=== PATIENT | female | born 1995 | race Caucasian/White ===

== ENCOUNTER 2019-02-12 05:28 | Inpatient (IN) | payer BC ==
[2019-02-12] MEDS ORDERED: Acetaminophen 500 MG Tab PO ONE (05:30)
[2019-02-12] MEDS ORDERED: Scopolamine 1.5 MG Transdermal Patch TOP ONE (05:30)
[2019-02-12] MEDS ORDERED: Celecoxib 200 MG Cap PO ONE (05:30)
[2019-02-12] MEDS ORDERED: Gabapentin 300 MG Cap PO ONE (05:30)
[2019-02-12] MEDS ORDERED: Dextrose 5%-Lactated Ringers 1,000 ML IV SCH (05:45)
[2019-02-12] MEDS ORDERED: cefOXitin 2 GM Vial ONE (06:31)
[2019-02-12] MEDS ORDERED: cefOXitin 2 GM in Sodium Chloride 0.9% 50 ML IV ONE (07:10)
[2019-02-12] MEDS ORDERED: Neostigmine Methylsulfate 1 MG/ML 5 ML Syringe ONE (07:10)
[2019-02-12] MEDS ORDERED: Dexamethasone 4 MG/ML SDV ONE (07:10)
[2019-02-12] MEDS ORDERED: Glycopyrrolate 0.2 MG/ML 5 ML MDV ONE (07:10)
[2019-02-12] MEDS ORDERED: Ondansetron 4 MG/2 ML SDV ONE (07:10)
[2019-02-12] MEDS ORDERED: Rocuronium 50 MG/5 ML Vial ONE (07:10)
[2019-02-12] MEDS ORDERED: Propofol 200 MG/20 ML SDV ONE (07:10)
[2019-02-12] MEDS ORDERED: Succinylcholine 200 MG/10 ML MDV ONE (07:10)
[2019-02-12] MEDS ORDERED: Lactated Ringers 1,000 ML ONE (07:12)
[2019-02-12] MEDS ORDERED: Lidocaine 2% 100 MG/5 ML Syringe IVPUSH SCH (07:30)
[2019-02-12] MEDS ORDERED: Ketamine 500 MG/5 ML MDV IV SCH (07:30)
[2019-02-12] MEDS ORDERED: Ketamine 50 MG in Sodium Chloride 0.9% 49.5 ML IV SCH (07:30)
[2019-02-12] MEDS: Lidocaine 0.4%/D5W 2 GM/500 ML BAG IV SCH (07:30)
[2019-02-12] MEDS ORDERED: fentaNYL 100 MCG/2 ML SDV ONE (08:35)
[2019-02-12] MEDS ORDERED: hydrOXYzine HCl 100 MG/2 ML SDV IM ONE (09:10)
[2019-02-12] MEDS ORDERED: fentaNYL 100 MCG/2 ML SDV IVPUSH ONE (09:10)
[2019-02-12] MEDS ORDERED: Ondansetron 4 MG/2 ML SDV IVPUSH PRN (11:02)
[2019-02-12] MEDS ORDERED: Metoclopramide 10 MG/2 ML SDV IVPUSH PRN (11:02)
[2019-02-12] MEDS ORDERED: HYDROmorphone 1 MG/ML Syringe IV PRN (11:02)
[2019-02-12] MEDS ORDERED: hydrOXYzine HCl 100 MG/2 ML SDV IM PRN (11:02)
[2019-02-12] MEDS ORDERED: Labetalol 20 MG/4 ML Syringe IVPUSH PRN (11:02)
[2019-02-12] MEDS ORDERED: diphenhydrAMINE 50 MG/ML SDV IVPUSH PRN (11:02)
[2019-02-12] MEDS ORDERED: HYDROmorphone 0.5 MG/0.5 ML Syringe IVPUSH PRN (11:02)
[2019-02-12] MEDS ORDERED: Pantoprazole 40 MG Vial IVPUSH SCH (12:00)
[2019-02-12] MEDS: Acetaminophen Soln 650 MG/20.3 ML UD Cup PO SCH ×3 (12:31→23:35)
[2019-02-12] MEDS: Dextrose 5%-Lactated Ringers 1,000 ML IV SCH ×2 (12:46→21:58)
[2019-02-12] MEDS: cefOXitin 2 GM in Sodium Chloride 0.9% 50 ML IV SCH ×2 (15:03→19:46)
[2019-02-12] MEDS: Gabapentin 250 MG/5 ML Solution ML 470 ML Bottle PO SCH ×2 (15:04→21:27)
[2019-02-12] MEDS: Heparin Sodium 5,000 Units/ML Vial SUBCUT SCH (15:04)
[2019-02-12] MEDS ORDERED: MVI, Adult with Vitamin K 10 ML, Thiamine 200 MG, Chromium/Copper/Mang/Selen/Zn 1 ML in... IV SCH ×4 (16:00)
[2019-02-13] MEDS: cefOXitin 2 GM in Sodium Chloride 0.9% 50 ML IV SCH ×2 (01:16→07:17)
[2019-02-13] MEDS ORDERED: Iopamidol 612 MG/ML 50 ML SDV PO STA (02:34)
[2019-02-13] MEDS: Heparin Sodium 5,000 Units/ML Vial SUBCUT SCH ×2 (03:22→15:50)
[2019-02-13] MEDS: Dextrose 5%-Lactated Ringers 1,000 ML IV SCH (04:15)
--- NOTE | 2019-02-13 04:16 | CRLCR ---
INDICATION: S/P RNY LEAK CHECK PRELIMINARY IMPRESSIONS: 1. No evidence of contrast extravasation is noted on 2 static submitted images. 2. Surgical drain is present in the left upper quadrant. Agree with preliminary report. No additional findings. Dictated by: Rome Fernandez MD @ 02/17/2019 17:48:43 (Electronically Signed)
[2019-02-13] MEDS: Acetaminophen Soln 650 MG/20.3 ML UD Cup PO SCH ×4 (05:23→23:56)
[2019-02-13] MEDS: Celecoxib 200 MG Cap PO SCH (07:13)
[2019-02-13] MEDS ORDERED: Ondansetron 4 MG Tab.DIS PO PRN (07:52)
[2019-02-13] MEDS ORDERED: Dextrose 5%-Lactated Ringers 1,000 ML IV SCH (08:00)
[2019-02-13] MEDS ORDERED: Non-Formulary Medication 1 Each (Etonogestrel [Nexplanon] 68 MG) IMPLANT SCH (09:00)
[2019-02-13] MEDS: SCOPOLAMINE PATCH CHECK TOP SCH (09:05)
[2019-02-13] MEDS: Lidocaine 0.4%/D5W 2 GM/500 ML BAG IV SCH (09:05)
--- NOTE | 2019-02-13 09:26 | PN ---
DATE OF SERVICE: 02/13/2019 SUBJECTIVE: Vitaliy is postoperative day #1. Her upper GI this morning was normal. Her pain has been managed. She slept well during the night. Her TREY drain put out 100 mL of a light pink drainage. Temperature max is 100.8. REVIEW OF SYSTEMS: Remainder of review of systems negative for any pertinent positives and negatives. OBJECTIVE: GENERAL: Vitaliy Varela is a pleasant 23-year-old female. She is sleeping comfortably in bed. VITAL SIGNS: TPR is 100.3, 82, 16. Blood pressure 103/45. HEENT: Negative. NECK: Supple. HEART: Regular rate and rhythm. LUNGS: Clear. ABDOMEN: Dressings dry and intact. TREY drain intact. Abdominal binder is on. EXTREMITIES: Without peripheral edema. ASSESSMENT: Laparoscopic Marybeth-en-Y gastric bypass surgery, liver biopsy, repair of diaphragmatic hernia, and partial gastrectomy for morbid obesity, hepatomegaly, diaphragmatic hernia, distal portion of the stomach, status post pouch formation. Date of surgery 02/12/2019. Surgeon, Aubrey Johnston MD. PLAN: 1. Decrease IV to 100 mL per hours. 2. Step 2 gastric bypass diet with no cereal. 3. Communication order: 3 med cups per hour or one every 20 minutes, record at bedside. 4. Dressing off, may shower. 5. Zofran ODT 4 mg q.4 hours p.r.n. nausea. She has a Nexplanon implant for control. 6. Good pulmonary toilet. 7. We will evaluate p.r.n. or in a.m. Dinah Lofton PA-C /[id number]
[2019-02-13] MEDS: Gabapentin 250 MG/5 ML Solution ML 470 ML Bottle PO SCH ×3 (10:05→20:29)
[2019-02-14] MEDS: Heparin Sodium 5,000 Units/ML Vial SUBCUT SCH (05:00)
[2019-02-14] MEDS: Acetaminophen Soln 650 MG/20.3 ML UD Cup PO SCH (05:05)
[2019-02-14] MEDS: Gabapentin 250 MG/5 ML Solution ML 470 ML Bottle PO SCH (08:30)
[2019-02-14] MEDS: Celecoxib 200 MG Cap PO SCH (08:30)
[2019-02-14] MEDS: SCOPOLAMINE PATCH CHECK TOP SCH (08:55)
[2019-02-14] MEDS ORDERED: Cyanocobalamin (Vitamin B12) 1,000 MCG/ML SDV IM ONE (09:00)
[2019-02-14] MEDS ORDERED: Magnesium Hydroxide 400 MG/5 ML Susp 30 ML Cup PO ONE (09:24)
--- NOTE | 2019-02-14 09:56 | DISCH ---
ADMISSION DIAGNOSES: 1. Morbid obesity, BMI 52.5. 2. Irritable bowel syndrome with diarrhea. 3. Iron deficiency anemia. 4. Generalized anxiety disorder. DISCHARGE DIAGNOSES: Laparoscopic Marybeth-en-Y gastric bypass surgery, liver biopsy, repair of diaphragmatic hernia, and partial gastrectomy for morbid obesity, hepatomegaly, diaphragmatic hernia, distal portion of the stomach, status post pouch formation. Date of surgery: 02/12/2019. Surgeon: Aubrey Johnston MD. HISTORY: Vitaliy Varela is a 23-year-old female with longstanding history of morbid obesity and increasing comorbidities. After preoperative evaluation and discussion of possible risks and possible complications, she wished to proceed with surgical procedure. HOSPITAL COURSE: Vitaliy had her surgery on 02/12/2019. She had no operative complications. On postoperative day #1, she was started on step 2 gastric bypass diet. Her activity was good. Pain was well managed. On postoperative day #2, she was able to be discharged to home. PHYSICAL EXAMINATION: GENERAL: Vitaliy is a pleasant 23-year-old female. Alert, orientated. VITAL SIGNS: Height 5 feet 6 inches, weight is 325 pounds, BMI is 52.5. TPR 98.6, 70, 16, blood pressure is 117/70. HEENT: Negative. NECK: Supple. HEART: Regular rate and rhythm. LUNGS: Clear. ABDOMEN: Sutures intact. 4 x 4 over TREY drain site. Abdominal binder on. EXTREMITIES: Without peripheral edema. DISPOSITION: Discharged to home. CONDITION: Stable and improving. FOLLOWUP: Followup appointment on 02/20/2019 at 11:15 a.m. HOME MEDICATIONS: 1. Tylenol 650 mg q.6 hours p.r.n. pain. 2. Celebrex 200 mg oral daily #14. 3. Milk of magnesia 30 mL to take one daily p.r.n. constipation, two were sent home with the patient. 4. Zofran ODT 4 mg q.4 hours p.r.n. nausea #30. She is to resume her home medications, Nexplanon. She is to discontinue all vitamins and supplements until after first postoperative appointment. DIET: Step 2 gastric bypass diet with no cereal for 2 weeks, 02/26/2019. ACTIVITY: No lifting greater than 10 pounds for 2 weeks. Walk at least 6 times daily, distance and time as tolerated. Driving: Do not drive for 1 week. Shower/bathing: May shower. DISCHARGE INSTRUCTIONS: Notify provider if any fever, increased pain, nausea, or vomiting. Keep site clean and dry. Wear abdominal binder for 2 weeks and then as tolerated. SPECIAL INSTRUCTIONS: Use incentive spirometer 10 times every hour while awake for 1 week.
--- NOTE | 2019-02-25 11:46 | OR ---
DATE OF PROCEDURE: 02/12/2019 PREOPERATIVE DIAGNOSIS: Morbid obesity. POSTOPERATIVE DIAGNOSES: 1. Morbid obesity. 2. Marked hepatomegaly. 3. Paraesophageal diaphragmatic hernia. 4. Ischemic area of stomach status post formation of gastric pouch. OPERATIVE PROCEDURES: 1. Laparoscopic Marybeth-en-Y gastric bypass with long-limb gastroenterostomy (17049). 2. David-Cut needle liver biopsy (47243). 3. Repair of paraesophageal diaphragmatic hernia (37494). 4. Partial gastrectomy (58411). ANESTHESIA: General. TIE UP WORKER: Dinah Lofton PA-C. INDICATIONS FOR PROCEDURE: This is a 23-year-old female presenting with longstanding morbid obesity issues and increasingly significant comorbidities. After preoperative evaluation and discussion, she wished to proceed with a gastric bypass. Procedure, potential risks including bleeding, infection, leaks from various GI tract closures, problems with bowel obstruction over time, as well as the possibility of cardiopulmonary, septic, or hemorrhagic complications leading to were discussed, and the patient wishes to proceed. DETAILS OF PROCEDURE: The patient was taken to the operating room and after general endotracheal anesthesia was induced, she was placed in a lithotomy position, and the abdomen was then prepped and draped. 15 cm inferior and 5 cm left of the xiphoid process, a transverse incision was made, and the peritoneal cavity entered under direct vision with an Optiview trocar and inflated to 15 mmHg pressure of CO2. Laparoscope was then reinserted and no underlying trocar insertion site injuries were seen. Following this bilateral subcostal transversus abdominis plane blocks were then placed and 5 additional trocars were placed across the upper and mid abdomen. Initial exploration revealed marked hepatomegaly with liver volume being roughly 2 to 3 times normal and liver grossly fatty infiltrated. David-Cut needle biopsies were obtained from the left lobe of liver. Minimal bleeding from the biopsy sites was controlled with electrocautery. The omentum was then divided in the midline up to the level of the transverse colon. This allowed identification of the small bowel at the ligament of Treitz. The small bowel was then traced out 200 cm distal to that point, where it was divided transversely with a MARIO stapler. Small bowel was then traced out additional 150 cm, where the ezah-jr-yzem enteroenterostomy was accomplished with internal firing of the Endo-MARIO 60 mm stapler. Common opening was then closed transversely with the same stapler, and the angles of anastomosis and mesenteric defect approximated with some 0 Ethibond stitch along with fibrin sealant. The divided end of the Marybeth limb was then from the mesentery for a few centimeters, which allowed an antecolic position of the Marybeth limb up to the level of the gastroesophageal junction without tension. The liver was retracted anteriorly. The patient noted to have a moderate size paraesophageal hernia with prolapse of some perigastric fat and gastric fundus in a plane anterior to the course of the esophagus. This was reduced and the peritoneum overlying the hernia incised and reflected downward. An anterior repair of the crural defect was then accomplished with 0 Ethibond sutures reinforced with PTFE pledgets. The gastrointestinal catheter was inflated 15 mL and pulled out snuggly against the EG junction. Gastric wall over the apex balloon was then marked with electrocautery and balloon catheter deflated and pulled up into the esophagus. The lesser omental tissue adjacent to the gastric cardia was then incised allowing dissection behind the stomach at that level. Pouch formation was initiated with transverse firing of the MARIO stapler at the level of the cauterized talisha at the gastric cardia and then completed with 2 additional firings of the MARIO stapler up to and through the angle of His. A portion of the stomach near the apex of the spleen on the bypassed portion of the stomach was noted to be ischemic. This area was therefore excised with additional firings of the MARIO stapler to limit chances of a leak developing in the bypassed portion of the stomach. The specimen was then delivered from the field. The anvil of a 25 mm EEA stapler was then attached to [place] sump type tube. The latter was brought down through the mouth and taken out through a small opening in the gastric pouch, allowing the anvil likewise to be pulled down to within the gastric pouch. The divided end of the Marybeth limb was then opened and main body of the EEA stapler passed several centimeters into the lumen of small bowel, brought up the anvil and united with it, thus creating the gastrojejunostomy. Upon removal of the stapler, double donuts of mucosa were noted within it. Small bowel was closed off with a vascular staple line. Gastrojejunostomy was reinforced with 3-0 Vicryl seromuscular stitch followed by fibrin sealant. Leak test was accomplished with injection of 120 mL of air in the gastric pouch while it was submerged with cefoxitin-containing saline solution. No leaks were identified. A single Matheus- Dennison drain was taken out through the left lateral trocar site and positioned adjacent to the gastrojejunostomy and from there up into the splenic fossa. Trocars were then sequentially removed, the peritoneal cavity deflated, and incisions were closed with some 4- 0 Vicryl skin stitch, which was also used to affix the drain. The patient was taken to the recovery room in satisfactory condition. Physician marketing operations assistant, Dinah Lofton, played an essential role in assisting in this case, helping to position the patient, retract structures as needed, as well as suturing and cutting sutures when indicated. Her presence improved patient safety and decreased operative time. Aubrey Johnston MD /[id number]
== END 2019-02-14 09:50 | disposition home or self-care (01) | DRG 403 ==
LOC: JP.SDSSCHI 05:28 → JP.SDS 05:28 → JP.2SS 08:50 → EDSTATUS 09:15
PROVIDERS: ADMIT Surgery; ATTEND Surgery
PROC: 0D164ZA Bypass Stomach to Jejunum, Percutaneous Endoscopic Approach (ICD-10-PCS; principal; 2019-02-12)
PROC: 0FB24ZX Excision of Left Lobe Liver, Percutaneous Endoscopic Approach, Diagnostic (ICD-10-PCS; 2019-02-12)
PROC: 0BQT4ZZ Repair Diaphragm, Percutaneous Endoscopic Approach (ICD-10-PCS; 2019-02-12)
PROC: 0DB64ZZ Excision of Stomach, Percutaneous Endoscopic Approach (ICD-10-PCS; 2019-02-12)
DX: E66.01 Morbid (severe) obesity due to excess calories (principal); Z68.43 Body mass index [BMI] 50.0-59.9, adult; R16.0 Hepatomegaly, not elsewhere classified; K44.9 Diaphragmatic hernia without obstruction or gangrene; K76.0 Fatty (change of) liver, not elsewhere classified; K31.89 Other diseases of stomach and duodenum; F41.1 Generalized anxiety disorder; D50.9 Iron deficiency anemia, unspecified; K58.0 Irritable bowel syndrome with diarrhea
CPT/HCPCS: 36415; 74240; 80048; 81025; 82962; 85027; 86850; 86900; 86901; 88305; 88307; 88313; A9270-GY; C9113; J0171; J0330; J0694; J1100; J1644; J2001; J2405; J2704; J2710; J2795; J3010; J3410; J3411; J3420; J3490; J7042; J7050; J7120; Q9967

== ENCOUNTER 2020-07-28 05:30 | Day surgery (SDC) | payer BC ==
[2020-07-28] MEDS ORDERED: Acetaminophen 500 MG Tab PO ONE (05:45)
[2020-07-28] MEDS: Dextrose 5%-Lactated Ringers 1,000 ML IV SCH ×2 (06:31→10:57)
[2020-07-28] MEDS ORDERED: Bupivacaine 0.5%/EPINEPHrine 1:200,000 50 ML MDV ONE (06:35)
[2020-07-28] MEDS ORDERED: cefOXitin 2 GM in Sodium Chloride 0.9% 50 ML IV ONE (06:45)
[2020-07-28] MEDS ORDERED: Glycopyrrolate 0.2 MG/ML 5 ML MDV ONE (06:50)
[2020-07-28] MEDS ORDERED: Rocuronium 50 MG/5 ML Vial ONE (06:50)
[2020-07-28] MEDS ORDERED: Neostigmine Methylsulfate 1 MG/ML 5 ML Syringe ONE (06:50)
[2020-07-28] MEDS ORDERED: fentaNYL 250 MCG/5 ML SDV ONE (06:50)
[2020-07-28] MEDS ORDERED: Ondansetron 4 MG/2 ML SDV ONE (06:50)
[2020-07-28] MEDS ORDERED: Dexamethasone 4 MG/ML SDV ONE (06:50)
[2020-07-28] MEDS ORDERED: Succinylcholine 200 MG/10 ML MDV ONE (06:50)
[2020-07-28] MEDS ORDERED: Propofol 200 MG/20 ML SDV ONE (06:50)
[2020-07-28] MEDS ORDERED: Ketamine 50 MG in Sodium Chloride 0.9% 49.5 ML IV SCH (07:30)
[2020-07-28] MEDS ORDERED: Ketamine 500 MG/5 ML MDV IV SCH (07:30)
[2020-07-28] MEDS ORDERED: hydrOXYzine HCL 100 MG/2 ML SDV IM ONE (08:17)
[2020-07-28] MEDS ORDERED: fentaNYL 100 MCG/2 ML SDV IVPUSH ONE (08:33)
[2020-07-28] MEDS ORDERED: Lidocaine 1% with EPINEPHrine 1:100,000 50 ML MDV ONE (08:40)
[2020-07-28] MEDS ORDERED: Bupivacaine 0.5% 50 ML MDV ONE (08:40)
[2020-07-28] MEDS ORDERED: Acetaminophen/HYDROcodone 325-5 MG Tab PO PRN (10:00)
[2020-07-28] MEDS ORDERED: HYDROmorphone 1 MG/ML Syringe IV PRN (10:00)
[2020-07-28] MEDS ORDERED: Ondansetron 4 MG/2 ML SDV IVPUSH PRN (10:00)
[2020-07-28] MEDS ORDERED: HYDROmorphone 0.5 MG/0.5 ML Syringe IVPUSH PRN (10:00)
[2020-07-28] MEDS ORDERED: Pantoprazole 40 MG Vial IVPUSH SCH (14:00)
[2020-07-28] MEDS: cefOXitin 2 GM in Sodium Chloride 0.9% 50 ML IV SCH ×2 (14:18→19:26)
[2020-07-29] MEDS: cefOXitin 2 GM in Sodium Chloride 0.9% 50 ML IV SCH ×2 (03:13→08:05)
--- NOTE | 2020-07-29 13:46 | DISCH ---
ADMISSION DIAGNOSES: Biliary dyskinesia, status post Marybeth-en-Y gastric bypass surgery, unspecified surgical malabsorption, B12 deficiency, general anxiety disorder, irritable bowel syndrome. DISCHARGE DIAGNOSES: 1. Laparoscopic cholecystectomy for biliary dyskinesia. 2. Date of procedure: 07/28/2020. HISTORY: Vitaliy Varela is a pleasant 24-year-old female with right upper quadrant pain and an ejection fraction of 18%. After preoperative evaluation and discussion of possible risks and possible complications, she wished to proceed with surgical procedure. HOSPITAL COURSE: Vitaliy had her surgery on 07/28/2020. She had no operative complications. On postoperative day #1, she was ready to be discharged to home. Vital signs stable. Oral intake and output adequate. She was up, ambulating, and pain was controlled with Tylenol. She was able to be discharged to home without any complications. PHYSICAL EXAMINATION: GENERAL: Vitaliy Varela is a pleasant 24-year-old female. VITAL SIGNS: Height is 5 feet 6 inches, weight is 209 pounds, BMI is 33.7. TPR is 97.9, 66, 16, blood pressure 124/73. HEENT: Negative. NECK: Supple. HEART: Regular rate and rhythm. LUNGS: Clear. ABDOMEN: Dressings are dry and intact. Incisions look good. Sutures intact EXTREMITIES: Without peripheral edema. DISPOSITION: Discharged to home. CONDITION: Stable and improving. FOLLOWUP: Appointment with Dinah Lofton PA-C, at [facility] on 08/06/2020 at 10:45 a.m. DIET: Usual diet as tolerated. Drink 8 to 10 glasses of water a day. ACTIVITY: No lifting greater than 10 pounds for 2 weeks. Other activity: Walk 6 times daily inside your home. Driving: Do not drive for 1 week. Shower/bathing: May shower. DISCHARGE INSTRUCTIONS: Wound incision care: Keep operative site clean and dry. Wear abdominal binder for 2 weeks and then as tolerated. HOME MEDICATIONS: 1. Tylenol 1000 mg q.8 hours p.r.n. pain. 2. [place] 5/325 mg 1 to 2 tablets every 4 hours p.r.n. pain. A written script was given. She will fill if needed for 30 tablets. 3. Resume bariatric vitamins. /[id number]
--- NOTE | 2020-08-02 18:34 | OR ---
DATE OF PROCEDURE: 07/28/2020 SURGEON: Aubrey Johnston MD PREOPERATIVE DIAGNOSIS: Biliary dyskinesia. POSTOPERATIVE DIAGNOSIS: Biliary dyskinesia. OPERATIVE PROCEDURE: Laparoscopic cholecystectomy (99148). ANESTHESIA: General. SPECIAL AGENT SECRET SERVICE: Dinah Lofton PA-C INDICATIONS FOR PROCEDURE: This is a 24-year-old female who was having some episodes of right upper quadrant pain and nausea in the postprandial period. A CCK-stimulated HIDA scan was obtained, which showed a below normal ejection fraction and the CCK injection causing reproduction of the patient's pain and other symptoms as well. Plan is to proceed with laparoscopic cholecystectomy. Potential risks including bleeding, infection, injury to common bile duct or other adjacent viscera, possible migration of the stones in the common bile duct resulting in need for additional procedures as well as possibility of persistent symptoms postprocedure were all gone over, and the patient wishes to proceed. DETAILS OF PROCEDURE: The patient was taken to the operating room, and after general endotracheal anesthesia was induced, the abdomen was prepped and draped. A transverse epigastric incision was made and peritoneal cavity entered under direct vision with an Optiview trocar and inflated to 15 mmHg pressure with CO2. Laparoscope was then reinserted. No underlying trocar insertion site injuries were seen. Following this, a 12 mm subumbilical trocar was placed along with a single 5 mm right abdominal trocar. Bilateral transversus abdominis plane blocks were then placed. The gallbladder was then retracted anteriorly and laterally, was noted to be edematous, particularly in the area of the cystohepatic triangle. Dissection began on the gallbladder neck and continued around the gallbladder neck and cystic duct junction. Once that area was well delineated along with the adjacent cystic artery, both structures were clipped 3 times proximally and once distally and divided. The gallbladder was dissected off the gallbladder bed using electrocautery and Harmonic scalpel, then delivered through the epigastric trocar site containing a small amount of sludge like material within it. The area of dissection was inspected and drain was felt not to be necessary. The trocars were then sequentially removed and peritoneal cavity deflated. Incisions were closed with some 0 Vicryl stitch in the fascia at the 12 mm sites and the skin with 4-0 Vicryl skin stitch. Dressing was applied. The patient was taken to the recovery room in satisfactory condition. There were no evident complications. Physician staffing assistant, Dinah Lofton, played an essential role in assisting in this case, helping to position the patient, retract structures as needed, as well as suturing and cutting sutures when indicated. Her presence improved patient safety and decreased the operative time. Aubrey Johnston MD /[id number]
== END 2020-07-29 09:00 | disposition home or self-care (01) ==
LOC: JP.SDS 05:30 → JP.MS 08:10 → JP.SDS 07-29 09:00
PROVIDERS: ATTEND Surgery
DX: K81.1 Chronic cholecystitis (principal); K82.8 Other specified diseases of gallbladder; Z98.890 Other specified postprocedural states; Z79.899 Other long term (current) drug therapy
CPT/HCPCS: 36415; 47562; 80053; 85027; 88304; A9270; C9113; J0171; J0330; J0694; J1100; J1170; J2405; J2704; J2710; J2795; J3010; J3410; J3490; J7121